=== PATIENT | male | born 1950 | race Caucasian/White ===

== ENCOUNTER → 2017-01-20 | Outpatient (CLI) | payer BC ==
[~2017-01-20] MED LIST: RANI150T7 PO
[2017-01-20 09:07] LABS: C. DIFFICILE TOXIN B NEGATIVE (NEGATIVE)
== END ==
LOC: LAB 07:41
PROVIDERS: ATTEND Surgery
DX: R19.7 Diarrhea, unspecified (principal)
CPT/HCPCS: 87493

== ENCOUNTER 2017-09-29 07:30 | Inpatient (IN) ==
--- NOTE | 2017-11-07 11:08 | History and Physical ---
CHIEF COMPLAINT Left knee pain. HPI This gentleman had a left knee replacement in [address] Salvador. He had some patellar tracking problems after surgery and underwent a lateral release about 6 months after the original surgery. The patient did very well until the last 10-12 months. He began having some anterior knee pain associated with swelling. It aggravated him with movement, weightbearing, stairs and walking. The pain is described as aching, sharp and throbbing. It is of moderate to severe intensity. He has tried some exercises, rest, ice, Tylenol and chiropractic treatments without improvement. 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 As a result, he is being admitted for a revision arthroplasty of his left patella. PAST MEDICAL HISTORY Polio. Anxiety. Tripathi's esophagus. GERD. Hypercholesterolemia. PAST SURGICAL HISTORY He has had multiple EGDs with biopsies. Arthroscopy of the left knee with a lateral release and his original total knee replacement on the left. Excision of skin cancers in the left groin. Laparoscopic cholecystectomy. He has had multiple surgeries on the lower extremities due to complications of polio from 1954 to 1989. Left inguinal hernia repair in 1985. FAMILY HISTORY Mother had heart failure. Father is . Paternal uncle had [place]. SOCIAL HISTORY This gentleman is . He continues to smoke. Uses alcohol a few times a week. ALLERGIES No known drug allergies. REVIEW OF SYSTEMS Constitutional: Negative for chills, fever, fatigue, malaise, or weight loss. HEENT: Negative for headache, or dizziness. Respiratory: Negative for cough, shortness of air, recent respiratory infections, or wheezing. Cardiovascular: Negative for chest pain, palpitations, leg swelling, or syncope. Gastrointestinal: Negative for abdominal pain, constipation, diarrhea, vomiting , heartburn, or nausea. Skin: Negative for skin infection or rash. Neurological: Negative for numbness of extremity or seizures. Psychiatric: Negative for anxiety or depression. Hematologic/Lymphatic: Negative for easy bleeding or easy bruising. PHYSICAL EXAMINATION General: This gentleman is 67 years old. He is well-developed, in no acute distress. He has no labored breathing. Pulses are good to the lower extremities with normal capillary refill. Skin is in good repair with well- healed scar over the knee. No rashes, warmth or other abnormalities identified. Musculoskeletal system shows the knee is tender to palpation anteriorly around the patella. He has no tenderness along the joint lines. The knee is stable to ligamentous exam. There is no effusion. He is maintaining good range of motion of the knee. Neurologically intact to the lower extremity. 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 PLAN Dr. Bishop has evaluated this patient in the clinical setting and feels he may have AVN of the patella resulting in loosening of the patellar component. They have discussed the surgical procedure, risks versus benefits and possible complications. The patient has had questions answered to his satisfaction. Will plan to proceed with a total knee revision on the left. HERLINDA
[2017-11-11] MEDS ORDERED: TRANEXAMIC ACID 1,000 MG in NS 100 ML IV ONE ×2 (06:00→07:00)
[2017-11-11] MEDS ORDERED: LIDOCAINE 1% (10mg/ml) 2mL INJ PF SDV ID ONE (06:00)
[2017-11-11] MEDS ORDERED: ACETAMINOPHEN 500 MG TABLET PO ONE (06:00)
[2017-11-11] MEDS ORDERED: ONDANSETRON 4 MG/2 ML INJECTION IVP ONE (06:00)
[2017-11-11] MEDS ORDERED: MELOXICAM 15 MG TABLET PO ONE (06:00)
[2017-11-11] MEDS ORDERED: METOCLOPRAMIDE 10mg/2ml INJECTION IVP ONE (06:00)
[2017-11-11] MEDS ORDERED: DEXAMETHASONE 4 MG/ML INJECTION IVP ONE (06:00)
[2017-11-11] MEDS ORDERED: FAMOTIDINE PB 20 MG/50 ML BAG IV ONE (06:00)
[2017-11-11] MEDS ORDERED: EPINEPHrine PF 0.25 MG, BUPIVACAINE 0.25% PF 30 ML, MORPHINE SULFATE 15 MG, KETOROLAC I... OPSITE ONE (08:00)
[2017-11-11 09:20] VITALS: BMI 26.7
[2017-11-11] MEDS ORDERED: SALINE FLUSH 10ml SYRINGE IV PRN (09:27)
[2017-11-11] MEDS: LR 1,000 ML IV SCH ×2 (10:12→12:25)
[2017-11-11] MEDS: NOZIN NASAL SWAB NAS ONE ×2 (10:18→10:19)
--- NOTE | 2017-11-11 11:20 | Anesthesia Preoperative Report ---
Anesthesia Preoperative Record - Date and Time Date: 11/11/17 Preoperative Diagnosis: left arthroplasty revision total knee patellar loosening of previous left knee arthroplasty Proposed Procedure: revision left total knee NPO Since Date: 11/10/17 NPO Since Time: 23:00 Allergies/Adverse Reactions: Allergies Allergy/AdvReac Type Severity Reaction Status Date / Time No Known Allergies Allergy Verified 11/11/17 09:32 - Vital Signs Vital Signs: Temperature 97.6 F 11/11/17 09:19 Pulse Rate 63 11/11/17 09:39 Respiratory Rate 14 11/11/17 09:19 Blood Pressure 135/78 11/11/17 09:19 Pulse Oximetry 99 11/11/17 09:19 Height and Weight: Height 1.78 m Weight 84.6 kg Body Mass Index 26.7 - Medications Inpatient Medications: Current Medications Lactated Ringer's (Lactated Ringers) 1,000 mls @ 50 mls/hr IV .Q20H DEANDRA Last Admin: 11/11/17 10:12 Dose: 50 mls/hr Sodium Chloride (Iv Flush) 10 - 80 ml IV PRN PRN PRN Reason: Flushing Home Medications: Home Medications Medication Instructions Recorded Confirmed Type Cholestyramine [Cholestyramine 5 gm MC DAILY 09/04/17 11/11/17 History Resin] Aspirin Chewable [ASA] 81 mg PO PRN PRN 11/11/17 11/11/17 History - Medical History Respiratory: DENIES: Sleep Apnea Cardiovascular: Reports: Other (heart cath 2 yrs ago, o problems ) Gastrointestional: Reports: Gastroesophageal Reflux Disease, Hiatal Hernia, Ulcer, Other (Tripathi's esophagus) Neuro/Musculoskeletal: Reports: Back Problems (L5 scatica, lower back pain and leg pain ), Muscle Weakness (lower extremities from polio), Other (anxiety ) Other History: Reports: Cancer (exc skin CA left groin) - Surgical History Cardiac Surgeries/Treatments: Reports: Cardiac Catheterization (2012-negative) GI Surgery/Treatments: Reports: Cholecystectomy, Hernia Repair (left inguinal), Colonoscopy (negative for polyps), EGD, Other (surgery for acid reflux Nov 2016) Musculoskeletal Surgery/Tx: Reports: Knee Arthroscopy (left retinacular release) , Orthopedic Surgery (numerous ortho surgeries), Total Knee Replacement (left TKA) Anesthesia Reactions: None Hx Family Anesthesia Reaction: No - Social History Smoking Status: Current some day smoker Substance Use Type: does not use Alcohol Intake: current Alcohol Intake Frequency: a few times a week - Pertinent Findings Laboratory: CBC and BMP 11/11/17 09:41 EKG: Sinus Rhythm - Physical Exam Respiratory Exam: Present: lungs clear, bilateral breath sounds equal Cardiovascular Exam: Present: regular rate and rhythm, no murmur - Airway Assessment Mallampati Score: II TMD: 3 Fingerbreadths Neck Extension: good Overall Assessment: no airway concerns - ASA ASA Score: 2 - Plan Regional/Trunk Block: Spinal Peripheral Nerve Block: Saphenous-Left - Discussion Discussion: Discussed risks/options/alternatives of anesthesia and questions answered. Patient consents. Nursing pain assessment noted. Attestation Statement: Prior to the delivery of any anesthetic medication, I examined the patient, developed the plan, obtained the patient's consent and discussed the risk and benefits of the procedure with the patient/guardian. - Additional Information Seen by Anesthesia: Yes
[2017-11-11] MEDS ORDERED: VANCOMYCIN 1,000 MG INJECTION ONE (11:24)
[2017-11-11] MEDS ORDERED: FentaNYL 100 MCG/2 ML INJECTION ONE ×2 (11:31→14:38)
[2017-11-11] MEDS ORDERED: MIDAZOLAM 2mg/2ml INJECTION ONE ×2 (11:31→13:31)
[2017-11-11] MEDS ORDERED: KETAMINE 500 MG/10 ML INJECTION ONE (11:31)
[2017-11-11] MEDS ORDERED: VANCOMYCIN 1,000 MG INJECTION IAR ONE (11:38)
[2017-11-11] MEDS ORDERED: PROPOFOL 20 ML ONE ×2 (11:46→13:53)
[2017-11-11] MEDS ORDERED: CEFAZOLIN 1 G INJECTION IVP ONE (12:03)
[2017-11-11] MEDS ORDERED: ROPIVACAINE 0.5% (5mg/ml) 30ml INJ ONE (12:32)
[2017-11-11] MEDS ORDERED: DiphenhydrAMINE 50 MG/ML INJECTION IVP PRN (15:21)
[2017-11-11] MEDS ORDERED: NS 1,000 ML IV SCH (15:21)
[2017-11-11] MEDS ORDERED: DiphenhydrAMINE 25 MG CAPSULE PO PRN (15:21)
[2017-11-11] MEDS ORDERED: NAPROXEN 220 MG TABLET PO PRN (15:21)
[2017-11-11] MEDS ORDERED: LORazepam 1 MG TABLET PO PRN (15:21)
[2017-11-11] MEDS ORDERED: NOZIN NASAL SWAB NAS ONE (15:21)
[2017-11-11] MEDS ORDERED: Oxycodone *IR* 5 MG TABLET PO PRN (15:21)
[2017-11-11] MEDS ORDERED: ONDANSETRON 4 MG/2 ML INJECTION IVP PRN (15:21)
--- NOTE | 2017-11-11 15:42 | XRay Report ---
Indication: postoperative image PROCEDURE: XR knee LT 2V: Encounter: Initial Comparison: July 08, 2017 Findings: Postoperative changes of left total knee replacement are seen. There is expected postoperative subcutaneous gas. No evidence of hardware failure or acute fracture. No retained radiopaque surgical instruments or sponges. Overlying material causing artifact. Impression: New left total knee prosthesis without evidence of immediate complication. .
[2017-11-11 16:09] VITALS: RESP 16; TEMP 96.2
--- NOTE | 2017-11-11 16:13 | Anesthesia Postoperative Note ---
- Date and Time Date: 11/11/17 Time: 15:25 - Status Patient Participated in Evaluation: Patient Participated in Person Vital Signs: Temperature 96.2 F L 11/11/17 15:37 Pulse Rate 68 11/11/17 15:52 Respiratory Rate 16 11/11/17 15:37 Blood Pressure 120/69 11/11/17 15:52 Pulse Oximetry 97 11/11/17 15:52 Respiratory Function: Airway Patent Cardiovascular Function: Regular Pulse EKG: Sinus Rhythm Mental Status: Alert and Oriented Pain Intensity: 0 Hydration: IV Infusing Complications During Recover: None Apparent - Follow-Up Instructions Instructions: Per Surgeon
--- NOTE | 2017-11-11 16:15 | Anesthesia Procedure Note ---
Peripheral Nerve Blockade - Procedure Physician: John Bishop MD Date: 11/11/17 Surgical Procedure: knee revision Discussion: Discussed risks/options/alternatives of anesthesia and questions answered. Patient consents. Nursing pain assessment noted. Block Start: 14:54 Block Stop: 14:57 Indication: Post-Operative Pain Approach: Left Side Confirmed Position: Supine Patient: Consent, Risks/Benefits Discussed, Informed, Post Block Act. Discussed IV Sedation: No Initial Vital Signs: Temperature 97.6 F 11/11/17 09:19 Temperature Source Oral 11/11/17 09:19 Pulse Rate 67 11/11/17 09:19 Respiratory Rate 14 11/11/17 09:19 Blood Pressure 135/78 11/11/17 09:19 Blood Pressure Mean 97 11/11/17 09:19 Pulse Oximetry 99 11/11/17 09:19 Oxygen Delivery Method 11/11/17 09:19 Post Vital Signs: Temperature 96.2 F L 11/11/17 15:37 Pulse Rate 68 11/11/17 15:52 Respiratory Rate 16 11/11/17 15:37 Blood Pressure 120/69 11/11/17 15:52 Pulse Oximetry 97 11/11/17 15:52 Initial Pain Pain Score: 0 Post Block Pain Score: 0 Prep: Chlorhexadine/ETOH Ultrasound Used?: Yes - Injectate Ropivacaine (%): 0.5 Ropivacaine (mL): 12 Injection: Injection made incrementally with constant monitoring and aspiration every ml
[2017-11-11] MEDS ORDERED: TRAMADOL 50 MG TABLET PO PRN (16:43)
[2017-11-11] MEDS ORDERED: ACETAMINOPHEN 325 MG TABLET PO SCH (17:00)
[2017-11-11 17:36] VITALS: PULSE 71
--- NOTE | 2017-11-11 17:48 | Orthopedic Progress Note ---
Date: Date: 11/11/17 Time: 1744 Subjective/Severity of Illness: Mr Arteaga underwent revision of the patellar component of his left total knee earlier today. His pain is well controlled and he has been mobile with good tolerance. He has transferred without difficulties and is independent with all activities. He would like to go home this evening. I talked with him about pain management concerns and the fact he would be missing out on IV antibiotics. He understands but would still like to go home. Orthopedic Objective PO Vital signs: Temperature 96.2 F L 11/11/17 15:37 Pulse Rate 71 11/11/17 17:33 Respiratory Rate 16 11/11/17 17:33 Blood Pressure 124/66 11/11/17 17:33 Pulse Oximetry 95 11/11/17 17:33 Height and Weight: Height 5 ft 10 in Weight 186 lb 8.177 oz Body Mass Index 26.7 - Constitutional General Appearance: Present: alert, orientated x3, cooperative, no acute distress - Respiratory Exam Present: non-labored - Cardiovascular Exam Present: pedal pulses intact - Extremities Exam Extremities: Present: pulses intact. Absent: calf tenderness - Surgical Site Incision: Mepilex dressing intact, no drainage - Neurological Exam Present: no deficits - Psychiatric Exam Present: alert, normal affect - Labs Result Diagrams: 11/11/17 09:41 Abnormal lab results 11/11/17 Range/Units 09:41 Immature Gran % (Auto) 0.7 H (0.0-0.5) % Neut % (Auto) 76.4 H (33-66) % Lymph % (Auto) 14.7 L (23-45) % Abs Immat Gran (auto) 0.07 H (0.00-0.03) T/MM3 H & H 11/11/17 Range/Units 09:41 Hgb 14.8 (13.5-17.5) GM/DL Hct 44.1 (41-53) % Orthopedic Assessment and Plan (1) Aseptic loosening of prosthetic knee Status: Acute Problem Details: Patellar component Assessment and Plan: He is doing very well and appears comfortable. I really can't find a reason to keep him if he wants to go home. Discussed discharge instructions with him. Aspirin for DVT coverage x 6 weeks. F/U scheduled for 3 weeks. Discharge today per pt request. - Anticoagulation Therapy Anticoagulation: ASA 81 mg PO BID x6 weeks Hospital Course Summary Disclaimer: The visit summary below is not to be considered part of the above Progress Note.
--- NOTE | 2017-11-11 17:54 | Discharge Summary ---
Orthopedic Discharge Info Date of admission: 11/11/17 09:01 Primary care physician: Fanny Chavira DO Attending Physician: John Bishop MD Consults: 11/11/17 09:26 Consult to Anesthesiology [CONS] Routine Reason For Exam: Preoperative Assessment 11/11/17 15:21 Case Management Consult [CONS] Routine Reason For Exam: Discharge Planning DME-Walker [CONS] Routine Height: 5 ft 10 in Weight: 186 lb 8.177 oz Total Joint Outpatient Therapy [CONS] Routine Comment: Remove dressing in 2 weeks - Discharge Diagnosis (1) Aseptic loosening of prosthetic knee Problem Details: Patellar component Status: Acute - Procedures Procedures: Procedures Total knee replacement (09/15/12) Revision of patellar component of left TKA 11/11/17 - Laboratory Result Diagrams: 11/11/17 09:41 Laboratory: Abnormal lab results 11/11/17 Range/Units 09:41 Immature Gran % (Auto) 0.7 H (0.0-0.5) % Neut % (Auto) 76.4 H (33-66) % Lymph % (Auto) 14.7 L (23-45) % Abs Immat Gran (auto) 0.07 H (0.00-0.03) T/MM3 H & H 11/11/17 Range/Units 09:41 Hgb 14.8 (13.5-17.5) GM/DL Hct 44.1 (41-53) % Orthopedic Discharge HPI - HPI Comments Admitted for revision of left knee patellar component. See H&P in chart for more details. Orthopedic Hospital Course Hospital course: 11/11/17 17:51 After appropriate preoperative clearance and signing of operative consent, the patient was given IV antibiotics, according to orthopedic protocol. The patient was taken to the operating room and underwent revision of the left patellar component of a previous TKA due to aseptic loosening.. Following surgery, aspirin was initiated and SCDs added for DVT prevention. The dressing was clean, dry, and intact. Pain was controlled with oral meds. Bowel motivation addressed with scheduled and PRN medications. Early mobilization was initiated and pt was independent with all activities. Pt wanted to go home the night of surgery and had met all criteria. Discharge arrangements made by a collaborative effort between the patient and Case Management. Follow-up is scheduled in 2-3 weeks. Discharge instructions given by orthopedic providers and nursing staff at discharge. Discharge condition was good. Care extended to > 2 midnight stays?: No Discharge Plan - Med Rec/Dispo Referrals/Follow Up: John Bishop MD [Physician] - 12/03/17 2:15 pm Michael Instructions: [facility] Postop Instructions Prescriptions: New Aspirin *EC* [Ecotrin] 81 mg PO BID tab Docusate Sodium [Colace] 100 mg PO BID cap Milk of Magnesia [Mom] 30 ml PO DAILY udc PEG 3350 17gm PACKET [Miralax] 17 gm PO DAILY packet Tramadol [Ultram] 50 - 100 mg PO Q6H PRN #50 tab PRN Reason: Pain Acetaminophen [Tylenol] 650 mg PO QID tab Continue Cholestyramine [Cholestyramine Resin] 5 gm MC DAILY ergocalciferol (vitamin D2) 50,000 unit capsule 50,000 unit PO DAILY #2 cap Discontinued Aspirin Chewable [ASA] 81 mg PO PRN PRN PRN Reason: Pain - Disposition 01 Discharged Home, Self-Care - Dismissal Complete Discharge Instructions are:: Complete
[2017-11-11] MEDS ORDERED: CEFAZOLIN 2 G in NS 100 ML IV SCH (19:30)
[2017-11-11] MEDS ORDERED: DEXAMETHASONE 20 MG/5 ML INJECTION IVP SCH (19:30)
[2017-11-11 19:38] VITALS: BP 120/73; O2SAT 98
[2017-11-11] MEDS ORDERED: ASPIRIN *EC* 81 MG TABLET PO SCH (21:00)
[2017-11-11] MEDS ORDERED: SENNOSIDES 8.6 MG TABLET PO SCH (21:00)
[2017-11-11] MEDS ORDERED: DOCUSATE SODIUM 100 MG CAPSULE PO SCH (21:00)
[2017-11-11] MEDS ORDERED: NOZIN NASAL SWAB NAS SCH (22:00)
--- NOTE | 2017-11-12 06:47 | Operative Note ---
DATE OF PROCEDURE 11/11/2017 PREOPERATIVE DIAGNOSIS Painful left total knee arthroplasty. POSTOPERATIVE DIAGNOSIS Left knee patellar component aseptic loosening. PROCEDURE Revision of left total knee arthroplasty patellar component. SURGEON John Bishop MD TALENT MANAGER Herbie Whitney PA-C COMPLICATIONS None. ANESTHESIA Spinal. DESCRIPTION OF PROCEDURE Mr. Arteaga and his left knee were identified and marked in the preoperative holding area. He was brought back to the operating suite and placed supine on the operating table. Spinal anesthetic was administered. He was then placed supine on the operating table and his left lower extremity was prepped and draped in my normal sterile fashion. Time-out was performed. I examined his knee under anesthesia. He had good motion from 0 to 120 degrees. The knee was ligamentously stable and the patella tracked well. I reopened the knee using an anterior midline incision that was previously established. This was followed by a medial parapatellar arthrotomy. The patella was everted and the surrounding synovium removed. It was obvious then at this point that the patella was loose. It was easily removed by hand. The remaining cement was also removed. The patellar component itself had about 50% of its surface covered with cement when I removed it. The patella itself was situated in the inferior aspect of the patella and the bone measured 8 mm. There was better bone stalk superior to where the implant was, measuring about 18 mm. I proceeded to cut this down to approximately 15 mm. I decided to use an augmented patella from [email or web address] and a reamer was used to allow the augmented patella to sit properly centered in the patella. The trial component was temporarily sutured into place so I could take the knee through a range of motion, ensure he was not overstuffed and that he tracked well, which he did. The component was then prepared for cementing and the augmented patella was cemented into place. Once the cement had cured, I secured it with #2 FiberWire through the holes and through the bone of the patellar augment. Once these were completed, a final patellar button was cemented onto the augment. Once this had cured, the knee was taken through a range of motion. Again, he tracked very well and nice and stable. The wound was thoroughly irrigated. Betadine solution was used during the procedure to help irrigate. A joint cocktail was injected throughout the soft tissues. The arthrotomy was then closed with #1 Vicryl. The subcutaneous tissue was closed with 2-0 Vicryl. The skin was closed with running 4-0 Monocryl followed by Dermabond and a sterile dressing. He tolerated this well with no complications. He was then taken to the recovery room under the care of Anesthesia. HERLINDA
[2017-11-12] MEDS ORDERED: POLYETHYL GLYCOL 3350 17gm PACKET PO SCH (09:00)
[2017-11-12] MEDS ORDERED: SENNOSIDES 8.6 MG TABLET PO PRN (14:42)
[2017-11-12] MEDS ORDERED: CHOLESTYRAMINE LIGHT 4 G PACKET PO SCH (16:00)
[2017-11-13] MEDS ORDERED: BISACODYL 10 MG SUPPOSITORY RECTALLY SCH (20:00)
== END 2017-11-11 18:30 | disposition home or self-care (01) | DRG 465 ==
LOC: NMC.PERIOP 11-11 09:01 → SRG 11-11 15:28
PROVIDERS: ADMIT Orthopaedic Surgery; ATTEND Orthopaedic Surgery